=== PATIENT | female | born 1985 | race African-American/Black ===

== ENCOUNTER 2022-04-03 10:31 | Inpatient (IN) | payer OTHER ==
[2022-04-03 10:53] VITALS: BMI 32.8
[2022-04-03 11:22] LABS: Hemoglobin 9.6 g/dL (12.0-15.5); Mean Corpuscular HGB CONC 34.3 g/dL (32.0-36.0); Mean Corpuscular Hemoglobin 27.6 pg (27.0-33.0); Mean Corpuscular Volume 80.5 fl (81.6-98.3); Mean Platelet Volume 9.9 fl (7.4-10.4); Platelet Count 163 10x3/uL (150-450); RBC Distribution Width 15.1 % (11.5-14.5); Red Blood Cell (RBC) Count 3.48 10x6/uL (3.90-5.03); White Blood Cell (WBC) Count 6.1 10x3/uL (3.5-10.5)
[2022-04-03] MEDS ORDERED: hydrALAZINE 20 MG/ML VIAL SLOW IVP PRN ×3 (11:30→19:23)
[2022-04-03 11:56] LABS: ALT (SGPT) 15 U/L (8-55); AST (SGOT) 19 U/L (5-34); Albumin 3.3 g/dL (3.5-5.0); Alkaline Phosphatase 97 U/L (40-110); Anion Gap 12 mmol/L (10-20); BUN (Urea Nitrogen) Less than 4 mg/dL (7.0-18.7); Bilirubin, Total 0.4 mg/dL (0.2-1.2); Calc. Creatinine Clearance 152 mL/min (70-130); Carbon Dioxide 24 mmol/L (22-29); Chloride 106 mmol/L (98-107); Estimated GFR 114; Globulin 3.1 g/dL (2.4-3.5); Glucose 114 mg/dL (70-105); Protein, Total 6.4 g/dL (6.0-8.3); Sodium 139 mmol/L (136-145)
[2022-04-03 12:09] LABS: Potassium 2.8 mmol/L (3.5-5.1)
[2022-04-03] MEDS ORDERED: POTASSIUM IODIDE 1 GM/ML PO SCH (12:15)
[2022-04-03] MEDS ORDERED: Butorphanol Tartrate 1 MG/ML VIAL SLOW IVP PRN (12:59)
[2022-04-03] MEDS ORDERED: Promethazine HCl 25 MG/ML VIAL IM PRN (12:59)
[2022-04-03] MEDS ORDERED: Calcium Gluc 4.6 MEQ/10 ML (100 MG/ML) SLOW IVP PRN (12:59)
[2022-04-03] MEDS ORDERED: Ondansetron PF 4 MG/2 ML Vial IVP PRN ×2 (12:59→19:23)
[2022-04-03] MEDS ORDERED: Labetalol HCl 100 MG/20 ML VIAL SLOW IVP PRN ×2 (12:59)
[2022-04-03] MEDS ORDERED: Lidocaine 1% (PF) 30 ML VIAL SC PRN (12:59)
[2022-04-03] MEDS ORDERED: Lorazepam 2 MG/ML VIAL SLOW IVP PRN (12:59)
[2022-04-03] MEDS ORDERED: NS w/ Oxytocin 30 units 500 ML IV SCH ×2 (13:00→19:23)
[2022-04-03] MEDS ORDERED: Magnesium Sulfate 20 gm/500 ml 20 GM/500 ML BAG ONE (13:02)
[2022-04-03] MEDS: Magnesium Sulfate 20 gm/500 ml 20 GM/500 ML BAG IVPB SCH ×2 (13:23→22:51)
[2022-04-03 13:30] LABS: Creatinine, Urine 37.59 mg/dL (47-110); Protein, Urine Random Quant Less than 10 mg/dL (1-14)
[2022-04-03] MEDS ORDERED: Mineral Oil ENEMA ONE (13:37)
[2022-04-03] MEDS ORDERED: Famotidine/PF 20 mg/2ml Vial SLOW IVP PRN (13:54)
[2022-04-03] MEDS ORDERED: Bicitra 30 ML UDCUP PO PRN (13:54)
[2022-04-03] MEDS ORDERED: Labetalol HCl 200 MG TAB PO SCH ×2 (14:00→21:00)
[2022-04-03] MEDS ORDERED: CEFAZOLIN 2 GM in Sodium Chloride 0.9% 100 ML IVPB SCH (14:00)
[2022-04-03 14:30] LABS: Syphilis Antibody Nonreactive (Nonreactive)
[2022-04-03 14:32] LABS: HBSAg Index 0.22 S/CO (0-0.99); Hep B Surf Ag Non-Reactive S/CO (NonReactive)
[2022-04-03] MEDS ORDERED: Phenylephrine 40 MG/NS 250 ML 250 ML ONE (15:22)
[2022-04-03] MEDS ORDERED: Oxytocin 10 UNITS/ML VIAL ONE (15:22)
[2022-04-03] MEDS ORDERED: Ondansetron PF 4 MG/2 ML Vial ONE (15:23)
[2022-04-03] MEDS ORDERED: Dexamethasone 4 mg/ml Vial ONE (15:23)
[2022-04-03 15:25] LABS: SARS-CoV-2 NAA Rapid Test Not Detected (NotDetected)
[2022-04-03] MEDS: Potassium Chloride 20 MEQ TAB PO SCH (15:29)
[2022-04-03 16:34] LABS: Potassium 2.6 mmol/L (3.5-5.1)
[2022-04-03] MEDS ORDERED: D5 LR w/20 mEq KCL 1,000 ML IV SCH (17:15)
[2022-04-03] MEDS ORDERED: Morphine PF 10 MG/10 ML VIAL ONE (17:23)
[2022-04-03] MEDS ORDERED: ePHEDrine Sulfate 50 MG/10 ML VIAL ONE (18:12)
[2022-04-03] MEDS ORDERED: Midazolam HCl 2 mg/2 ml Vial ONE (18:23)
[2022-04-03] MEDS ORDERED: Fentanyl 100 MCG/2 ML VIAL SLOW IVP PRN ×2 (18:57→19:56)
[2022-04-03] MEDS ORDERED: Ketorolac Tromethamine 30 MG/ML VIAL IVP SCH (19:00)
[2022-04-03] MEDS: Potassium Chloride 20 MEQ in Premix Bag 1 BAG IVPB SCH (19:00)
[2022-04-03] MEDS ORDERED: Simethicone Chewable 80 MG TAB PO PRN (19:23)
[2022-04-03] MEDS ORDERED: HYDROcodone/Acetaminophen 5/325 mg Tablet PO PRN ×2 (19:23)
[2022-04-03] MEDS ORDERED: Lanolin Ointment 7 GM TUBE TOP PRN (19:23)
[2022-04-03] MEDS ORDERED: Misoprostol 200 MCG TAB PR PRN (19:23)
[2022-04-03] MEDS ORDERED: diphenhydrAMINE 25 MG CAP PO PRN (19:23)
[2022-04-03] MEDS ORDERED: Moisturizing Cream (Eucerin) 113 GM JAR TOP PRN (19:56)
[2022-04-03] MEDS ORDERED: Naloxone HCl 0.4 mg/ml Vial IV PRN (19:56)
[2022-04-03] MEDS ORDERED: Naloxone HCl 0.4 mg/ml Vial IVP PRN ×2 (19:56)
[2022-04-03] MEDS ORDERED: Communication Order-Pharmacy FS SCH (20:00)
[2022-04-03] MEDS ORDERED: Potassium Chloride 20 MEQ TAB PO SCH (21:00)
[2022-04-03] MEDS ORDERED: Potassium Chloride 40 MEQ in Premix Bag 1 BAG IVPB SCH (21:00)
[2022-04-03] MEDS: Ketorolac Tromethamine 30 MG/ML VIAL IVP PRN (23:40)
[2022-04-04] MEDS ORDERED: diphenhydrAMINE 50 MG/ML VIAL ONE (01:21)
[2022-04-04] MEDS ORDERED: diphenhydrAMINE 50 MG/ML VIAL IVP SCH (01:30)
[2022-04-04 05:03] LABS: Anion Gap 14 mmol/L (10-20); BUN (Urea Nitrogen) 4 mg/dL (7.0-18.7); Calc. Creatinine Clearance 145 mL/min (70-130); Calcium 7.8 mg/dL (7.8-10.44); Carbon Dioxide 22 mmol/L (22-29); Chloride 105 mmol/L (98-107); Estimated GFR 113; Glucose 132 mg/dL (70-105); Potassium 3.1 mmol/L (3.5-5.1); Sodium 138 mmol/L (136-145)
[2022-04-04 05:04] LABS: Hemoglobin 8.6 g/dL (12.0-15.5); Mean Corpuscular HGB CONC 34.1 g/dL (32.0-36.0); Mean Corpuscular Hemoglobin 27.8 pg (27.0-33.0); Mean Corpuscular Volume 81.6 fl (81.6-98.3); Mean Platelet Volume 10.2 fl (7.4-10.4); Platelet Count 174 10x3/uL (150-450); RBC Distribution Width 15.5 % (11.5-14.5); Red Blood Cell (RBC) Count 3.09 10x6/uL (3.90-5.03); White Blood Cell (WBC) Count 12.5 10x3/uL (3.5-10.5)
[2022-04-04] MEDS ORDERED: Ibuprofen 800 MG TAB PO SCH (06:00)
[2022-04-04] MEDS ORDERED: Potassium Chloride 20 MEQ TAB PO SCH (07:15)
[2022-04-04] MEDS ORDERED: HYDROcodone/Acetaminophen 5/325 mg Tablet PO PRN ×3 (08:00→18:49)
[2022-04-04] MEDS ORDERED: Prenatal Vitamin 1 TAB PO SCH (09:00)
[2022-04-04] MEDS: Ketorolac Tromethamine 30 MG/ML VIAL IVP PRN ×2 (09:26→15:27)
[2022-04-04] MEDS: Labetalol HCl 200 MG TAB PO SCH ×2 (09:27→21:34)
[2022-04-04] MEDS: Magnesium Sulfate 20 gm/500 ml 20 GM/500 ML BAG IVPB SCH (09:37)
[2022-04-04] MEDS: Ferrous Sulfate 325 MG TAB PO SCH ×2 (15:11→19:56)
[2022-04-04] MEDS ORDERED: diphenhydrAMINE 25 MG CAP PO PRN (18:49)
[2022-04-04] MEDS ORDERED: Ondansetron PF 4 MG/2 ML Vial IVP PRN (18:49)
[2022-04-04] MEDS ORDERED: NS w/ Oxytocin 30 units 500 ML IV SCH (18:49)
[2022-04-04] MEDS ORDERED: Lanolin Ointment 7 GM TUBE TOP PRN (18:49)
[2022-04-04] MEDS ORDERED: Bisacodyl 10 MG SUPP PR PRN (18:49)
[2022-04-04] MEDS ORDERED: hydrALAZINE 20 MG/ML VIAL SLOW IVP PRN (18:49)
[2022-04-04] MEDS ORDERED: Promethazine HCl 25 MG/ML VIAL IM PRN (18:49)
[2022-04-04] MEDS ORDERED: Misoprostol 200 MCG TAB PR PRN (18:49)
[2022-04-04] MEDS: Potassium Chloride 20 MEQ in Premix Bag 1 BAG IVPB SCH (18:52)
[2022-04-04] MEDS: Potassium Chloride 20 MEQ TAB PO SCH (19:54)
[2022-04-04] MEDS: Ibuprofen 800 MG TAB PO SCH (21:21)
[2022-04-05] MEDS: HYDROcodone/Acetaminophen 5/325 mg Tablet PO PRN ×3 (01:26→21:59)
[2022-04-05] MEDS: Ibuprofen 800 MG TAB PO SCH ×4 (04:50→20:59)
[2022-04-05 05:21] LABS: Mean Corpuscular HGB CONC 34.3 g/dL (32.0-36.0); Mean Corpuscular Hemoglobin 28.6 pg (27.0-33.0); Mean Corpuscular Volume 83.3 fl (81.6-98.3); Mean Platelet Volume 10.4 fl (7.4-10.4); Platelet Count 180 10x3/uL (150-450); RBC Distribution Width 16.3 % (11.5-14.5); Red Blood Cell (RBC) Count 2.45 10x6/uL (3.90-5.03); White Blood Cell (WBC) Count 11.5 10x3/uL (3.5-10.5)
[2022-04-05] MEDS: Prenatal Vitamin 1 TAB PO SCH (08:10)
[2022-04-05] MEDS: Labetalol HCl 200 MG TAB PO SCH ×2 (08:11→20:59)
[2022-04-05] MEDS: Docusate 100 MG CAP PO SCH ×2 (10:47→20:59)
[2022-04-05] MEDS: Ferrous Sulfate 325 MG TAB PO SCH (10:47)
[2022-04-05 14:56] LABS: Hemoglobin 6.8 g/dL (12.0-15.5)
[2022-04-05] MEDS ORDERED: hydrALAZINE 20 MG/ML VIAL SLOW IVP SCH (18:00)
[2022-04-05] MEDS ORDERED: Boostrix 0.5 ML (Tdap) VIAL (>/=7 yrs of age) IM ONE (18:49)
[2022-04-06] MEDS: Ibuprofen 800 MG TAB PO SCH ×3 (04:59→21:03)
[2022-04-06 07:26] LABS: Hemoglobin 6.7 g/dL (12.0-15.5)
[2022-04-06 07:31] LABS: Anion Gap 13 mmol/L (10-20); BUN (Urea Nitrogen) Less than 4 mg/dL (7.0-18.7); Calc. Creatinine Clearance 167 mL/min (70-130); Calcium 8.6 mg/dL (7.8-10.44); Carbon Dioxide 24 mmol/L (22-29); Chloride 108 mmol/L (98-107); Estimated GFR 117; Glucose 85 mg/dL (70-105); Sodium 142 mmol/L (136-145)
[2022-04-06 07:33] LABS: Potassium 2.9 mmol/L (3.5-5.1)
[2022-04-06] MEDS: Prenatal Vitamin 1 TAB PO SCH (08:26)
[2022-04-06] MEDS: Ferrous Sulfate 325 MG TAB PO SCH (08:26)
[2022-04-06] MEDS: Labetalol HCl 200 MG TAB PO SCH ×2 (08:26→21:03)
[2022-04-06] MEDS: Docusate 100 MG CAP PO SCH ×2 (08:26→21:03)
[2022-04-06] MEDS ORDERED: hydrALAZINE 20 MG/ML VIAL SLOW IVP SCH ×2 (09:00→17:45)
[2022-04-06] MEDS ORDERED: Acetaminophen 325 MG TAB PO SCH (09:00)
[2022-04-06] MEDS ORDERED: Potassium Chloride 20 MEQ TAB PO SCH (09:00)
[2022-04-06] MEDS ORDERED: Labetalol HCl 100 MG TAB PO SCH (10:00)
[2022-04-06] MEDS: HYDROcodone/Acetaminophen 5/325 mg Tablet PO PRN (11:57)
[2022-04-06] MEDS ORDERED: NIFEdipine XL 60 MG TAB PO SCH (15:45)
[2022-04-06] MEDS ORDERED: hydrALAZINE 20 MG/ML VIAL ONE (17:41)
[2022-04-06] MEDS ORDERED: Boostrix 0.5 ML (Tdap) VIAL (>/=7 yrs of age) IM ONE (19:23)
[2022-04-06 19:32] LABS: Hemoglobin 8.6 g/dL (12.0-15.5)
[2022-04-06 19:50] LABS: Anion Gap 15 mmol/L (10-20); BUN (Urea Nitrogen) 4 mg/dL (7.0-18.7); Calc. Creatinine Clearance 154 mL/min (70-130); Calcium 9.5 mg/dL (7.8-10.44); Carbon Dioxide 25 mmol/L (22-29); Chloride 106 mmol/L (98-107); Estimated GFR 115; Glucose 102 mg/dL (70-105); Potassium 3.6 mmol/L (3.5-5.1); Sodium 142 mmol/L (136-145)
[2022-04-06] MEDS ORDERED: hydrALAZINE 20 MG/ML VIAL SLOW IVP PRN ×2 (19:56→20:00)
[2022-04-07] MEDS: Ibuprofen 800 MG TAB PO SCH ×3 (05:44→21:37)
[2022-04-07] MEDS: Prenatal Vitamin 1 TAB PO SCH (08:15)
[2022-04-07] MEDS: Docusate 100 MG CAP PO SCH ×2 (08:15→21:37)
[2022-04-07] MEDS: Ferrous Sulfate 325 MG TAB PO SCH (08:15)
[2022-04-07] MEDS: Labetalol HCl 200 MG TAB PO SCH ×2 (08:26→21:37)
[2022-04-07] MEDS ORDERED: NIFEdipine XL 30 MG TAB PO SCH (09:00)
[2022-04-08 05:05] LABS: Hemoglobin 8.8 g/dL (12.0-15.5); Mean Corpuscular HGB CONC 33.7 g/dL (32.0-36.0); Mean Corpuscular Hemoglobin 28.2 pg (27.0-33.0); Mean Corpuscular Volume 83.7 fl (81.6-98.3); Mean Platelet Volume 10.1 fl (7.4-10.4); Platelet Count 232 10x3/uL (150-450); RBC Distribution Width 15.9 % (11.5-14.5); Red Blood Cell (RBC) Count 3.12 10x6/uL (3.90-5.03); White Blood Cell (WBC) Count 7.2 10x3/uL (3.5-10.5)
[2022-04-08 05:29] LABS: Anion Gap 12 mmol/L (10-20); BUN (Urea Nitrogen) 5 mg/dL (7.0-18.7); Calc. Creatinine Clearance 161 mL/min (70-130); Calcium 8.8 mg/dL (7.8-10.44); Carbon Dioxide 23 mmol/L (22-29); Chloride 109 mmol/L (98-107); Estimated GFR 116; Glucose 84 mg/dL (70-105); Potassium 3.2 mmol/L (3.5-5.1); Sodium 141 mmol/L (136-145)
[2022-04-08] MEDS: Ibuprofen 800 MG TAB PO SCH ×3 (05:51→21:12)
[2022-04-08] MEDS ORDERED: NIFEdipine XL 30 MG TAB PO SCH (07:14)
[2022-04-08] MEDS: Labetalol HCl 200 MG TAB PO SCH ×2 (08:40→21:12)
[2022-04-08] MEDS: NIFEdipine XL 60 MG TAB PO SCH (08:40)
[2022-04-08] MEDS: Potassium Chloride 20 MEQ TAB PO SCH ×2 (08:40→17:36)
[2022-04-08] MEDS: Ferrous Sulfate 325 MG TAB PO SCH (08:41)
[2022-04-08] MEDS: Prenatal Vitamin 1 TAB PO SCH (08:41)
[2022-04-08] MEDS: Docusate 100 MG CAP PO SCH ×2 (08:41→21:12)
[2022-04-09] MEDS: Ibuprofen 800 MG TAB PO SCH ×2 (06:17→13:18)
[2022-04-09 06:44] LABS: Anion Gap 13 mmol/L (10-20); BUN (Urea Nitrogen) 6 mg/dL (7.0-18.7); Calc. Creatinine Clearance 167 mL/min (70-130); Calcium 8.8 mg/dL (7.8-10.44); Carbon Dioxide 21 mmol/L (22-29); Chloride 110 mmol/L (98-107); Estimated GFR 117; Glucose 95 mg/dL (70-105); Potassium 3.5 mmol/L (3.5-5.1); Sodium 140 mmol/L (136-145)
[2022-04-09] MEDS: Prenatal Vitamin 1 TAB PO SCH (07:57)
[2022-04-09] MEDS: Labetalol HCl 200 MG TAB PO SCH (07:57)
[2022-04-09] MEDS: Docusate 100 MG CAP PO SCH (07:57)
[2022-04-09] MEDS: Potassium Chloride 20 MEQ TAB PO SCH (07:57)
[2022-04-09] MEDS: Ferrous Sulfate 325 MG TAB PO SCH (07:58)
[2022-04-09] MEDS: NIFEdipine XL 60 MG TAB PO SCH (07:58)
[2022-04-09] MEDS ORDERED: Simethicone Chewable 80 MG TAB PO PRN (08:11)
[2022-04-09] MEDS ORDERED: Milk Of Magnesia 30 ML UDCUP PO SCH (09:00)
[2022-04-09 16:23] VITALS: BP 138/81; TEMP 98.2
== END 2022-04-09 16:20 | disposition home or self-care (01) | DRG 784 ==
LOC: CSHLD/OP 10:31 → CSHLD 16:25 → EEVIPCON 16:25 → CSHPP 04-04 19:30
PROVIDERS: ADMIT Student in an Organized Health Care Education/Training Program; ATTEND Student in an Organized Health Care Education/Training Program
PROC: 10D00Z1 Extraction of Products of Conception, Low, Open Approach (ICD-10-PCS; principal; 2022-04-03)
PROC: 0UB70ZZ Excision of Bilateral Fallopian Tubes, Open Approach (ICD-10-PCS; 2022-04-03)
PROC: 30233N1 Transfusion of Nonautologous Red Blood Cells into Peripheral Vein, Percutaneous Approach (ICD-10-PCS; 2022-04-06)
DX: O11.4 Pre-existing hypertension with pre-eclampsia, complicating childbirth (principal); D62 Acute posthemorrhagic anemia; O10.92 Unspecified pre-existing hypertension complicating childbirth; Z3A.36 36 weeks gestation of pregnancy; Z37.0 Single live birth; O34.211 Maternal care for low transverse scar from previous cesarean delivery; F32.A Depression, unspecified; F41.9 Anxiety disorder, unspecified; O99.344 Other mental disorders complicating childbirth; Z91.040 Latex allergy status; O32.1XX0 Maternal care for breech presentation, not applicable or unspecified; E87.6 Hypokalemia; O99.284 Endocrine, nutritional and metabolic diseases complicating childbirth; O90.81 Anemia of the puerperium; K59.00 Constipation, unspecified; O99.63 Diseases of the digestive system complicating the puerperium
CPT/HCPCS: 36415; 36430; 51702; 80048; 80053; 82570; 84156; 85014; 85018; 85027; 86780; 86850; 86900; 86901; 87340; 88302; 93005; 93010; 99285; J0360; J1100; J1200; J1885; J2250; J2274; J2405; J2590; J3475; J3480; J3490; P9016; S0028; U0002